=== PATIENT | male | born 1995 | race African-American/Black ===

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

== ENCOUNTER 2017-02-08 20:09 | Emergency (ER) | payer BC ==
--- NOTE | 2017-02-08 21:44 | EDM.PDOC ---
ED HPI GENERAL MEDICAL PROBLEM - General Chief Complaint: General Stated Complaint: PT HAS SORE THROAT Time Seen by Provider: 02/08/17 21:36 - History of Present Illness INITIAL COMMENTS - FREE TEXT/NARRATIVE: HISTORY AND PHYSICAL: History of present illness: The patient is a healthy 21-year-old male who presents with a three-day history of sore throat and some sinus congestion and drainage but no cough chest pain or shortness of breath. He has pain with swallowing but no abdominal complaints vomiting or diarrhea. The patient has been on the Internet looking things up and is concerned. He also says that he has a rash in his inguinal area for last 2 weeks it has been using peroxide to clean it. He has no urinary complaints or testicular pain or swelling. Review of systems: As per history of present illness and below otherwise all systems reviewed and negative. Past medical history: As per history of present illness and as reviewed below otherwise noncontributory. Surgical history: As per history of present illness and as reviewed below otherwise noncontributory. Social history: No reported history of drug or alcohol abuse. Family history: As per history of present illness and as reviewed below otherwise noncontributory. Physical exam: Gen.: Well-developed well-nourished man who speaks clearly and easily in the ED and has no hoarseness or muffled voice. Vital signs have been reviewed by me. HEENT: Atraumatic, normocephalic, pupils reactive, negative for conjunctival pallor or scleral icterus, mucous membranes moist, throat clear of exudates but there is generalized beefy erythema of the posterior oropharynx and uvula is midline, there is some anterior cervical adenopathy and no nuchal rigidity,, neck supple, nontender, trachea midline. Lungs: Clear to auscultation, breath sounds equal bilaterally, chest nontender. Heart: S1S2, regular rate and rhythm no overt murmurs Abdomen: Soft, nondistended, nontender. NABS Skin: Normal turgor, in the inguinal area there is a dry maculopapular rash without any vesicles Genitourinary: Deferred. Rectal: Deferred. Extremities: Atraumatic, negative for cords or calf pain. Neurovascular unremarkable. Neuro: Awake, alert, oriented. Cranial nerves II through XII unremarkable. Cerebellum unremarkable. Motor and sensory unremarkable throughout. Exam nonfocal. Diagnostics: [] Therapeutics: [] Impression: Pharyngitis, inguinal rash Definitive disposition and diagnosis as appropriate pending reevaluation and review of above. groin Pain Score (Numeric/FACES): 6 - Related Data Allergies Allergy/AdvReac Type Severity Reaction Status Date / Time No Known Allergies Allergy Verified 02/08/17 21:32 Home Meds: Home Meds . [No Known Home Meds] 09/21/16 [History] Past Medical History - Past Health History Medical/Surgical History: Denies Medical/Surgical History Respiratory History: Reports: Asthma Gastrointestinal History: Reports: None Genitourinary History: Reports: None Neurological History: Reports: None Psychiatric History: Reports: None Endocrine/Metabolic History: Reports: None Hematologic History: Reports: None Oncologic (Cancer) History: Reports: None - Infectious Disease History Infectious Disease History: Reports: None - Past Surgical History HEENT Surgical History: Reports: Other (See Below) Social & Family History - Family History Family Medical History: Noncontributory - Tobacco Use Smoking Status *Q: Never Smoker - Caffeine Use Caffeine Use: Reports: Soda - Recreational Drug Use Recreational Drug Use: Yes ED ROS GENERAL - Review of Systems Review Of Systems: ROS reveals no pertinent complaints other than HPI. ED EXAM, GENERAL - Physical Exam Exam: See Below (see dictation) Course - Vital Signs Last Recorded V/S: Last Vital Signs Temp 36.7 C 02/08/17 21:33 Pulse 71 02/08/17 21:33 Resp 14 02/08/17 21:33 BP 104/61 02/08/17 21:33 Pulse Ox 97 02/08/17 21:33 Departure - Departure Time of Disposition: 21:43 Disposition: Home, Self-Care 01 Condition: Good Clinical Impression: Pharyngitis Qualifiers: Pharyngitis/tonsillitis etiology: unspecified etiology Qualified Code(s): J02.9 - Acute pharyngitis, unspecified - Discharge Information Forms: ED Department Discharge Additional Instructions: The following information is given to patients seen in the emergency department who are being discharged to home. This information is to outline your options for follow-up care. We provide all patients seen in our emergency department with a follow-up referral. The need for follow-up, as well as the timing and circumstances, are variable depending upon the specifics of your emergency department visit. If you don't have a primary care physician on staff, we will provide you with a referral. We always advise you to contact your personal physician following an emergency department visit to inform them of the circumstance of the visit and for follow-up with them and/or the need for any referrals to a consulting specialist. The emergency department will also refer you to a specialist when appropriate. This referral assures that you have the opportunity for followup care with a specialist. All of these measure are taken in an effort to provide you with optimal care, which includes your followup. Under all circumstances we always encourage you to contact your private physician who remains a resource for coordinating your care. When calling for followup care, please make the office aware that this follow-up is from your recent emergency room visit. If for any reason you are refused follow-up, please contact the [facility] emergency department at and ask to speak to the emergency department charge nurse. [facility]- Internal Medicine and Family [address] [id number] Please cleanse your rash area with mild soap and water pat dry and try to keep as dry as possible using [id number] medications as we discussed. Please taken about X until they're finished. Please call and follow-up with your primary care physician or one of our clinic doctors in the next few days for reevaluation and further care. Return to ER as needed and as discussed
== END 2017-02-08 21:57 | disposition home or self-care (01) ==
LOC: MW.ED 20:09
CPT/HCPCS: 99282

== ENCOUNTER 2017-06-29 13:48 | Emergency (ER) | payer BC ==
[2017-06-29] MEDS ORDERED: Ondansetron 4 MG Tab.DIS PO ONE (14:16)
[2017-06-29] MEDS ORDERED: Alum Hydrox/Mag Hydrox/Simeth 15 ML, Lidocaine 2% 5 ML PO ONE ×2 (14:17)
--- NOTE | 2017-06-29 14:18 | EDM.PDOC ---
ED HPI GENERAL MEDICAL PROBLEM - General Chief Complaint: Abdominal Pain Stated Complaint: FLU SYMPTOMS Time Seen by Provider: 06/29/17 14:03 Source of Information: Reports: Patient History Limitations: Reports: No Limitations - History of Present Illness INITIAL COMMENTS - FREE TEXT/NARRATIVE: History of present illness: []Patient's had 2 days of vomiting and diarrhea with small amount of blood in his emesis today. No blood in his diarrhea. He's had a cough for a few days no fevers but has had chills. Patient complains of abdominal pain in his epigastric area that is worse after drinking alcohol he states. Review of systems: As per history of present illness and below otherwise all systems reviewed and negative. Past medical history: As per history of present illness and as reviewed below otherwise noncontributory. Surgical history: As per history of present illness and as reviewed below otherwise noncontributory. Social history: No reported history of drug or alcohol abuse. Family history: As per history of present illness and as reviewed below otherwise noncontributory. Physical exam: General: Well developed, well nourished in NAD HEENT: Atraumatic, normocephalic, pupils reactive, negative for conjunctival pallor or scleral icterus, mucous membranes moist, throat clear no erythema, neck supple, nontender, trachea midline. No stridor Lungs: Coarse breath sounds to auscultation, no wheezing, breath sounds equal bilaterally, chest nontender. Heart: S1S2, regular, negative for clicks, rubs, or JVD. Abdomen: Soft, nondistended, mild epigastric tenderness no rebound or guarding. Negative for masses or hepatosplenomegaly. Negative for costovertebral tenderness. Pelvis: Stable nontender. Genitourinary: Deferred. Rectal: Deferred. Extremities: Atraumatic, negative for cords or calf pain. Neurovascular unremarkable. Neuro: Awake, alert, oriented. Cranial nerves II through XII unremarkable. Cerebellum unremarkable. Motor and sensory unremarkable throughout. Exam nonfocal. Diagnostics: []Chest x-ray negative, vital signs stable Therapeutics: []Zofran and GI cocktail given with improvement Impression: []Vomiting diarrhea, GERD Plan: []Taking Zantac as directed Zofran for nausea follow-up with PMD return if symptoms worsen or change Definitive disposition and diagnosis as appropriate pending reevaluation and review of above. Abdominal Pain Score (Numeric/FACES): 8 - Related Data Allergies Allergy/AdvReac Type Severity Reaction Status Date / Time No Known Allergies Allergy Verified 06/29/17 14:06 Home Meds: Home Meds Ondansetron HCl [Zofran] 4 mg PO Q8HR PRN #12 tablet 06/29/17 [Rx] Past Medical History - Past Health History Medical/Surgical History: Denies Medical/Surgical History Respiratory History: Reports: Asthma Gastrointestinal History: Reports: None Genitourinary History: Reports: None Neurological History: Reports: None Psychiatric History: Reports: None Endocrine/Metabolic History: Reports: None Hematologic History: Reports: None Oncologic (Cancer) History: Reports: None - Infectious Disease History Infectious Disease History: Reports: None - Past Surgical History HEENT Surgical History: Reports: Other (See Below) Social & Family History - Family History Family Medical History: Noncontributory - Tobacco Use Smoking Status *Q: Never Smoker Second Hand Smoke Exposure: No - Caffeine Use Caffeine Use: Reports: Soda, Tea - Recreational Drug Use Recreational Drug Use: No ED ROS GENERAL - Review of Systems Review Of Systems: See Below (See history of present illness) ED EXAM, GI/ABD - Physical Exam Exam: See Below (See history of present illness) Course - Vital Signs Last Recorded V/S: Last Vital Signs Temp 97.4 F 06/29/17 14:11 Pulse 66 06/29/17 14:37 Resp 18 06/29/17 14:37 BP 111/66 06/29/17 14:37 Pulse Ox 97 06/29/17 14:11 - Orders/Labs/Meds Meds: Medications Discontinued Medications Generic Name Dose Route Start Last Admin Trade Name Freq PRN Reason Stop Dose Admin Al Hydroxide/Mg Hydroxide 15 0 ml 06/29/17 14:17 06/29/17 14:36 ml/ Lidocaine HCl 5 ml PO 06/29/17 14:18 1 each ONETIME ONE Administration Ondansetron HCl 4 mg 06/29/17 14:16 06/29/17 14:37 Zofran Odt PO 06/29/17 14:17 4 mg ONETIME ONE Administration Departure - Departure Time of Disposition: 14:46 Disposition: Home, Self-Care 01 Condition: Good Clinical Impression: Vomiting and diarrhea - Discharge Information Prescriptions: Ondansetron HCl [Zofran] 4 mg PO Q8HR PRN #12 tablet PRN Reason: Nausea Referrals: PCP,None [Primary Care Provider] - Forms: ED Department Discharge Additional Instructions: The following information is given to patients seen in the emergency department who are being discharged to home. This information is to outline your options for follow-up care. We provide all patients seen in our emergency department with a follow-up referral. The need for follow-up, as well as the timing and circumstances, are variable depending upon the specifics of your emergency department visit. If you don't have a primary care physician on staff, we will provide you with a referral. We always advise you to contact your personal physician following an emergency department visit to inform them of the circumstance of the visit and for follow-up with them and/or the need for any referrals to a consulting specialist. The emergency department will also refer you to a specialist when appropriate. This referral assures that you have the opportunity for follow-up care with a specialist. All of these measure are taken in an effort to provide you with optimal care, which includes your follow-up. Under all circumstances we always encourage you to contact your private physician who remains a resource for coordinating your care. When calling for follow-up care, please make the office aware that this follow-up is from your recent emergency room visit. If for any reason you are refused follow-up, please contact the [facility] Emergency Department at and asked to speak to the emergency department charge nurse. Take Zofran for nausea, take either Zantac or Tagamet for stomach discomfort, follow-up with PMD return if symptoms worsen or change [facility] [address] [place] [id number]
--- NOTE | 2017-06-29 14:41 | CR ---
EXAMINATION: Two-view chest (PA and Lateral views). HISTORY: Shortness of breath. FINDINGS: The trachea is midline. The cardiomediastinal silhouette is within normal limits. No pulmonary infilt rates, effusions or pneumothorax. Osseous structures appear unremarkable. IMPRESSION: No acute cardiopulmonary process.
[2017-06-29 15:44] VITALS: BP 115/76
== END 2017-06-29 15:05 | disposition home or self-care (01) ==
LOC: MW.ED 13:48
DX: K21.9 Gastro-esophageal reflux disease without esophagitis (principal)
CPT/HCPCS: 71020; 99283; A9270

== ENCOUNTER 2017-11-03 22:56 | Emergency (ER) | payer BC ==
[2017-11-03] MEDS ORDERED: Sodium Chloride 0.9% 1,000 ML IV ONE (23:03)
--- NOTE | 2017-11-03 23:04 | EDM.PDOC ---
ED HPI GENERAL MEDICAL PROBLEM - General Chief Complaint: Abdominal Pain Stated Complaint: PT HAS STOMACH PAINS Time Seen by Provider: 11/03/17 23:03 Source of Information: Reports: Patient - History of Present Illness INITIAL COMMENTS - FREE TEXT/NARRATIVE: HISTORY AND PHYSICAL: History of present illness: [Patient presents with abdominal pain that he rates 8 out of 10 for 2 days nonradiating diffuse abdominal pain possible slight focus in the epigastrium intermittent nausea and diarrhea although patient used aloe vera for a colon cleanse today which may contribute to loose stools No fever no current vomiting chills sweats no chest pain shortness of breath headache dizziness or palpitation no urine symptoms Denies chronic illness or disease ] Patient was lying in the entrance of the emergency room unable to get off of the floor due to pain, with encouragement he was able to get registered, after arrival to the actual room in bed 1 patient was noted to be sleeping while waiting for CT results Review of systems: As per history of present illness and below otherwise all systems reviewed and negative. Past medical history: As per history of present illness and as reviewed below otherwise noncontributory. Surgical history: As per history of present illness and as reviewed below otherwise noncontributory. Social history: No reported history of drug or alcohol abuse. Family history: As per history of present illness and as reviewed below otherwise noncontributory. Physical exam: HEENT: Atraumatic, normocephalic, pupils reactive, negative for conjunctival pallor or scleral icterus, mucous membranes moist, throat clear, neck supple, nontender, trachea midline. Lungs: Clear to auscultation, breath sounds equal bilaterally, chest nontender. Heart: S1S2, regular, negative for clicks, rubs, or JVD. Abdomen: Soft, nondistenonfocal tenderness on deep palpation no guarding or reboundgative for masses or hepatosplenomegaly. Negative for costovertebral tenderness. Pelvis: Stable nontender. Genitourinary: Deferred. Rectal: Deferred. Extremities: Atraumatic, negative for cords or calf pain. Neurovascular unremarkable. Neuro: Awake, alert, oriented. Cranial nerves II through XII unremarkable. Cerebellum unremarkable. Motor and sensory unremarkable throughout. Exam nonfocal. Diagnostics: [CBC CMP UA lipase troponin ]Abdomen pelvis with contrast Therapeutics: [Liter normal saline bolus Zofran 8 mg IV Toradol 30 mg IV Proton X 80 mg IV Toradol 10 mg by mouth 3 times a day when necessary #30 no refill ] Impression: [Abdominal pain]-resolved gastroenteritis Possible malingering--has now mostly concerned about a work note for his girlfriend Definitive disposition and diagnosis as appropriate pending reevaluation and review of above. Abdomen Pain Score (Numeric/FACES): 10 - Related Data Allergies Allergy/AdvReac Type Severity Reaction Status Date / Time No Known Allergies Allergy Verified 11/03/17 23:16 Home Meds: Home Meds . [No Known Home Meds] 11/03/17 [History] Past Medical History - Past Health History Medical/Surgical History: Denies Medical/Surgical History Respiratory History: Reports: Asthma Gastrointestinal History: Reports: None Genitourinary History: Reports: None Neurological History: Reports: None Psychiatric History: Reports: None Endocrine/Metabolic History: Reports: None Hematologic History: Reports: None Oncologic (Cancer) History: Reports: None - Infectious Disease History Infectious Disease History: Reports: None - Past Surgical History HEENT Surgical History: Reports: Other (See Below) Social & Family History - Family History Family Medical History: Noncontributory - Tobacco Use Smoking Status *Q: Never Smoker Second Hand Smoke Exposure: No - Caffeine Use Caffeine Use: Reports: Soda, Tea - Recreational Drug Use Recreational Drug Use: No ED ROS GENERAL - Review of Systems Review Of Systems: ROS reveals no pertinent complaints other than HPI. ED EXAM, GENERAL - Physical Exam Exam: See Below Course - Vital Signs Last Recorded V/S: Last Vital Signs Temp 96.9 F 11/03/17 23:13 Pulse 79 11/03/17 23:13 Resp 12 11/03/17 23:13 BP 103/79 11/03/17 23:13 Pulse Ox 97 11/03/17 23:13 - Orders/Labs/Meds Orders: Active Orders 24 hr Category Date Time Status Abdomen Pelvis w Cont [CT] Stat Exams 11/03/17 00:16 Taken DRUG SCREEN, URINE [URCHEM] Stat Lab 11/03/17 23:09 Ordered UA W/MICROSCOPIC [URIN] Stat Lab 11/03/17 23:03 Ordered Labs: Laboratory Tests 11/03/17 11/03/17 Range/Units 23:09 23:09 WBC 9.60 (4.0-11.0) K/uL RBC 5.86 (4.50-5.90) M/uL Hgb 16.5 (13.0-17.0) g/dL Hct 46.5 (38.0-50.0) % MCV 79.4 L (80.0-98.0) fL MCH 28.2 (27.0-32.0) pg MCHC 35.5 (31.0-37.0) g/dL RDW Std Deviation 38.2 (28.0-62.0) fl RDW Coeff of Anahi 13 (11.0-15.0) % Plt Count 168 (150-400) K/uL MPV 10.70 (7.40-12.00) fL Neut % (Auto) 47.9 L (48.0-80.0) % Lymph % (Auto) 43.9 H (16.0-40.0) % [place] % (Auto) 7.5 (0.0-15.0) % Eos % (Auto) 0.5 (0.0-7.0) % Baso % (Auto) 0.2 (0.0-1.5) % Neut # (Auto) 4.6 (1.4-5.7) K/uL Lymph # (Auto) 4.2 H (0.6-2.4) K/uL [place] # (Auto) 0.7 (0.0-0.8) K/uL Eos # (Auto) 0.1 (0.0-0.7) K/uL Baso # (Auto) 0.0 (0.0-0.1) K/uL Nucleated RBC % 0.0 /100WBC Nucleated RBCs # 0 K/uL Sodium 142 (136-148) mmol/L Potassium 3.4 L (3.5-5.1) mmol/L Chloride 104 (98-107) mmol/L Carbon Dioxide 26.8 (21.0-32.0) mmol/L BUN 6 L (7.0-18.0) mg/dL Creatinine 1.3 (0.8-1.3) mg/dL Est Cr Clr Drug Dosing 99.49 mL/min Estimated GFR (MDRD) > 60.0 ml/min Glucose 111 H (74-106) mg/dL Calcium 9.1 (8.5-10.1) mg/dL Total Bilirubin 0.2 (0.2-1.0) mg/dL AST 68 H (15-37) IU/L ALT 142 H (14-63) IU/L Alkaline Phosphatase 63 (46-116) U/L Troponin I < 0.050 (0.000-0.056) ng/mL Total Protein 7.6 (6.4-8.2) g/dL Albumin 4.0 (3.4-5.0) g/dL Globulin 3.6 H (2.0-3.5) g/dL Albumin/Globulin Ratio 1.1 L (1.3-2.8) Lipase 72 L (73-393) U/L TSH 3rd Generation 0.83 (0.36-3.74) uIU/mL Ethyl Alcohol <3 mg/dL Meds: Medications Discontinued Medications Generic Name Dose Route Start Last Admin Trade Name Freq PRN Reason Stop Dose Admin Sodium Chloride 1,000 mls @ 999 mls/hr 11/03/17 23:03 11/03/17 23:30 Normal Saline IV 11/04/17 00:03 999 mls/hr STAT ONE Administration Iopamidol 100 ml 11/04/17 00:47 11/04/17 00:48 Isovue-370 (76%) IVPUSH 11/04/17 00:48 100 ml ONETIME STA Administration Ketorolac Tromethamine 30 mg 11/03/17 23:06 11/03/17 23:16 Toradol IVPUSH 11/03/17 23:07 30 mg ONETIME ONE Administration Ondansetron HCl 8 mg 11/03/17 23:06 11/03/17 23:16 Zofran IVPUSH 11/03/17 23:07 8 mg ONETIME ONE Administration Pantoprazole Sodium 80 mg 11/03/17 23:06 11/03/17 23:16 Protonix Iv IVPUSH 11/03/17 23:07 80 mg .BOLUS ONE Administration Departure - Departure Time of Disposition: 01:15 Disposition: Home, Self-Care 01 Condition: Good Clinical Impression: Gastroenteritis - Discharge Information Referrals: PCP,None [Primary Care Provider] - Forms: ED Department Discharge Additional Instructions: The following information is given to patients seen in the emergency department who are being discharged to home. This information is to outline your options for follow-up care. We provide all patients seen in our emergency department with a follow-up referral. The need for follow-up, as well as the timing and circumstances, are variable depending upon the specifics of your emergency department visit. If you don't have a primary care physician on staff, we will provide you with a referral. We always advise you to contact your personal physician following an emergency department visit to inform them of the circumstance of the visit and for follow-up with them and/or the need for any referrals to a consulting specialist. The emergency department will also refer you to a specialist when appropriate. This referral assures that you have the opportunity for follow-up care with a specialist. All of these measure are taken in an effort to provide you with optimal care, which includes your follow-up. Under all circumstances we always encourage you to contact your private physician who remains a resource for coordinating your care. When calling for follow-up care, please make the office aware that this follow-up is from your recent emergency room visit. If for any reason you are refused follow-up, please contact the [facility] emergency department at and asked to speak to the emergency department charge nurse. - My Orders Last 24 Hours: My Active Orders 11/03/17 00:16 Abdomen Pelvis w Cont [CT] Stat 11/03/17 23:03 UA W/MICROSCOPIC [URIN] Stat 11/03/17 23:09 DRUG SCREEN, URINE [URCHEM] Stat - Assessment/Plan Last 24 Hours: My Active Orders 11/03/17 00:16 Abdomen Pelvis w Cont [CT] Stat 11/03/17 23:03 UA W/MICROSCOPIC [URIN] Stat 11/03/17 23:09 DRUG SCREEN, URINE [URCHEM] Stat
[2017-11-03] MEDS ORDERED: Ondansetron 4 MG/2 ML SDV IVPUSH ONE (23:06)
[2017-11-03] MEDS ORDERED: Pantoprazole 40 MG Vial IVPUSH ONE (23:06)
[2017-11-03] MEDS ORDERED: Ketorolac 30 MG/ML SDV IVPUSH ONE (23:06)
[2017-11-03 23:56] LABS: CHLORIDE,CL 104 mmol/L (98-107); SODIUM,NA 142 mmol/L (136-148)
[2017-11-04] MEDS ORDERED: Iopamidol 755 Mg/ML 100 ML Bottle IVPUSH STA (00:47)
[2017-11-04 01:31] VITALS: BP 113/53
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
== END 2017-11-04 01:27 | disposition home or self-care (01) ==
LOC: MW.ED 22:56
DX: K52.9 Noninfective gastroenteritis and colitis, unspecified (principal); J45.909 Unspecified asthma, uncomplicated
CPT/HCPCS: 36415; 74177; 80053; 83690; 84443; 84484; 85025; 96361; 96374; 96375; 99284; C9113; G0480; J1885; J2405; J7040; Q9967

== ENCOUNTER 2017-12-24 21:06 | Emergency (ER) | payer BC ==
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
[2017-12-24 22:50] VITALS: BP 122/73
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
== END 2017-12-24 22:47 | disposition home or self-care (01) ==
LOC: MW.ED 21:06
DX: R04.0 Epistaxis (principal); J45.909 Unspecified asthma, uncomplicated; Y04.8XXA Assault by other bodily force, initial encounter
CPT/HCPCS: 70450; 70450-26; 70486; 70486-26; 71110; 71110-26; 72125; 72125-26; 99284; 99284-25